=== PATIENT | female | born 1960 | race Caucasian/White ===

== ENCOUNTER 2017-12-28 08:41 | Day surgery (SDC) | payer OTHER ==
[2017-12-28 12:50] LABS: ADD MAN DIFF? NO
[2017-12-28 12:53] LABS: WHITE BLOOD COUNT 7.1 10^3/ul (4.8-10.8)
[2017-12-28 12:53] LABS: BASOPHIL # 0.1 10^3/ul (0.0-0.1); BASOPHILS % 0.8 % (0.0-2.0); EOSINOPHILS # 0.2 10^3/ul (0.0-0.5); EOSINOPHILS % 2.3 % (0.0-7.0); HEMATOCRIT 40.1 % (37.0-47.0); HEMOGLOBIN 14.3 g/dl (12.0-16.0); LYMPHOCYTES # 2.7 10^3/ul (0.8-2.9); LYMPHOCYTES % 38.2 % (15.0-51.0); MEAN CORPUSCULAR HEMOGLOBIN 29.3 pg (29.0-33.0); MEAN CORPUSCULAR HGB CONC 35.7 g/dl (32.0-37.0); MEAN CORPUSCULAR VOLUME 82.2 fl (82.0-101.0); MEAN PLATELET VOLUME 12.3 fl (7.4-10.4); MONOCYTE # 0.5 10^3/ul (0.3-0.9); MONOCYTES % 6.5 % (0.0-11.0); NEUTROPHIL # 3.7 10^3/ul (1.6-7.5); NEUTROPHILS % 52.1 % (39.0-77.0); PLATELET COUNT 242 10^3/UL (140-415); RED BLOOD COUNT 4.88 10^6/ul (4.20-5.40); RED CELL DISTRIBUTION WIDTH 11.7 % (11.5-14.5)
[2017-12-28 13:12] LABS: INR 0.95; PROTIME 12.8 Sec (11.9-14.9)
[2017-12-28 13:15] LABS: ALANINE AMINOTRANSFERASE 30 IU/L (13-69); ALBUMIN 4.6 g/dl (3.3-4.9); ALBUMIN/GLOBULIN RATIO 1.31; ALKALINE PHOSPHATASE 91 IU/L (42-121); ANION GAP 17 (8-16); ASPARTATE AMINO TRANSFERASE 24 IU/L (15-46); BILIRUBIN,INDIRECT 0.3 mg/dl (0-1.1); BILIRUBIN,TOTAL 0.3 mg/dl (0.2-1.3); CARBON DIOXIDE 29 mmol/L (21-31); CHLORIDE 103 mmol/L (97-110); GLUCOSE 185 mg/dl (70-220); TOTAL PROTEIN 8.1 g/dl (6.1-8.1)
[2017-12-28 13:24] LABS: BLOOD UREA NITROGEN 18 mg/dl (7-20); CALCIUM 9.3 mg/dl (8.4-10.2)
[2017-12-28 13:25] LABS: SODIUM 145 mmol/L (135-144)
[2017-12-28] MEDS ORDERED: SOD CHLORIDE 0.9% 1,000 ML IV (13:30)
[2017-12-28] MEDS ORDERED: FENTAnyl 50 MCG/ML VIAL (13:57)
[2017-12-28] MEDS ORDERED: MIDAZOLAM 1 MG/ML 2 ML INJ (13:57)
[2017-12-28] MEDS ORDERED: PROPOFOL 20 ML (14:59)
[2017-12-28] MEDS ORDERED: LIDOCAINE 2% (SDV) 5 ML INJ (14:59)
[2017-12-28] MEDS ORDERED: CEFAZOLIN 1 GM INJ (14:59)
[2017-12-28] MEDS ORDERED: HYDROCODONE/APAP (7.5/325) TAB PO (15:00)
[2017-12-28] MEDS ORDERED: ONDANSETRON 4 MG INJ (15:00)
[2017-12-28] MEDS ORDERED: ONDANSETRON 4 MG INJ IV (15:30)
[2017-12-28] MEDS ORDERED: DIPHENHYDRAMINE 50 MG INJ IV (15:30)
[2017-12-28] MEDS ORDERED: METOCLOPRAMIDE 10 MG INJ IV (15:30)
[2017-12-28] MEDS ORDERED: LABETALOL HCL 20MG INJ IV (15:30)
[2017-12-28] MEDS ORDERED: FENTAnyl 50 MCG/ML VIAL IV (15:30)
[2017-12-28] MEDS ORDERED: HYDROmorphONE (0.2 MG/ML) 10ML SYG IV ×2 (15:30)
[2017-12-28] MEDS ORDERED: MEPERIDINE 25 MG INJ IV (15:30)
== END 2017-12-28 17:00 | disposition home or self-care (01) ==
LOC: SDS 08:41
DX: D05.12 Intraductal carcinoma in situ of left breast (principal); I10 Essential (primary) hypertension; E78.5 Hyperlipidemia, unspecified
CPT/HCPCS: 19120; 80053; 82962; 84703; 85025; 85610; 85730; 88307; 88341; 88342; 93005

== ENCOUNTER 2018-04-19 07:49 | Day surgery (SDC) | payer OTHER ==
[~2018-04-19 07:49] MED LIST: LIDOCAINE 100 MG SYRINGE
[2018-04-19] MEDS ORDERED: SOD CHLORIDE 0.9% 1,000 ML IV (08:00)
[2018-04-19] MEDS ORDERED: CEFAZOLIN 1 GM/50 ML (PMX) 50 ML IVPB (08:00)
[2018-04-19 09:01] LABS: ADD MAN DIFF? NO
[2018-04-19 09:04] LABS: BASOPHILS % 0.6 % (0.0-2.0); EOSINOPHILS # 0.2 10^3/ul (0.0-0.5); EOSINOPHILS % 2.5 % (0.0-7.0); HEMATOCRIT 39.6 % (37.0-47.0); HEMOGLOBIN 13.8 g/dl (12.0-16.0); LYMPHOCYTES # 1.9 10^3/ul (0.8-2.9); MEAN CORPUSCULAR HEMOGLOBIN 29.1 pg (29.0-33.0); MEAN CORPUSCULAR HGB CONC 34.8 g/dl (32.0-37.0); MEAN CORPUSCULAR VOLUME 83.5 fl (82.0-101.0); MEAN PLATELET VOLUME 12.5 fl (7.4-10.4); MONOCYTE # 0.4 10^3/ul (0.3-0.9); MONOCYTES % 6.2 % (0.0-11.0); NEUTROPHIL # 3.9 10^3/ul (1.6-7.5); NEUTROPHILS % 60.4 % (39.0-77.0); PLATELET COUNT 219 10^3/UL (140-415); RED BLOOD COUNT 4.74 10^6/ul (4.20-5.40); RED CELL DISTRIBUTION WIDTH 11.3 % (11.5-14.5)
[2018-04-19 09:04] LABS: WHITE BLOOD COUNT 6.4 10^3/ul (4.8-10.8)
[2018-04-19 09:26] LABS: ALANINE AMINOTRANSFERASE 35 IU/L (13-69); ALBUMIN/GLOBULIN RATIO 1.17; ALKALINE PHOSPHATASE 103 IU/L (42-121); ANION GAP 14 (8-16); ASPARTATE AMINO TRANSFERASE 24 IU/L (15-46); BILIRUBIN,INDIRECT 0.4 mg/dl (0-1.1); BILIRUBIN,TOTAL 0.4 mg/dl (0.2-1.3); BLOOD UREA NITROGEN 19 mg/dl (7-20); CALCIUM 8.7 mg/dl (8.4-10.2); CARBON DIOXIDE 24 mmol/L (21-31); CHLORIDE 105 mmol/L (97-110); CREATININE 0.57 mg/dl (0.44-1.00); GLUCOSE 278 mg/dl (70-220); POTASSIUM 4.4 mmol/L (3.5-5.1); SODIUM 139 mmol/L (135-144); TOTAL PROTEIN 7.4 g/dl (6.1-8.1)
[2018-04-19] MEDS: INSULIN REGULAR, HUMAN 100 UNIT/1 ML 3ML VIAL SC (09:31)
[2018-04-19 09:39] LABS: INR 0.92; PROTIME 12.4 Sec (11.9-14.9)
[2018-04-19 09:40] LABS: PARTIAL THROMBOPLASTIN TIME 25.7 Sec (25.0-35.0)
[2018-04-19] MEDS ORDERED: GLYCOPYRROLATE 0.4 MG INJ (11:24)
[2018-04-19] MEDS ORDERED: ROCURONIUM 50 MG INJ (11:24)
[2018-04-19] MEDS ORDERED: FENTAnyl 50 MCG/ML VIAL (11:24)
[2018-04-19] MEDS ORDERED: NEOSTIGMINE 3 MG/3 ML SYRINGE (11:24)
[2018-04-19] MEDS ORDERED: DEXAMETHASONE 4 MG/ML 1 ML INJ (11:24)
[2018-04-19] MEDS ORDERED: ONDANSETRON 4 MG INJ (11:24)
[2018-04-19] MEDS ORDERED: MIDAZOLAM 1 MG/ML 2 ML INJ (11:24)
[2018-04-19] MEDS ORDERED: PROPOFOL 20 ML (11:24)
[2018-04-19] MEDS ORDERED: NALOXONE (0.4 MG/ML) INJ IV (11:30)
[2018-04-19] MEDS ORDERED: SUCCINYLCHOLINE CHLORIDE 100 MG/5 ML SYG IV (12:29)
[2018-04-19] MEDS: HYDROmorphONE 1 MG/5 ML IV SYRINGE IV ×2 (13:27→13:33)
[2018-04-19] MEDS ORDERED: FENTAnyl 50 MCG/ML VIAL IV ×3 (13:30)
[2018-04-19] MEDS ORDERED: HYDROmorphONE 1 MG/5 ML IV SYRINGE IV ×2 (13:30)
[2018-04-19] MEDS ORDERED: ONDANSETRON 4 MG INJ IV (13:30)
[2018-04-19] MEDS: HYDROCODONE/APAP (7.5/325) TAB PO (14:38)
== END 2018-04-19 16:00 | disposition home or self-care (01) ==
LOC: SDS 07:49
DX: N60.32 Fibrosclerosis of left breast (principal); N60.22 Fibroadenosis of left breast; Z85.3 Personal history of malignant neoplasm of breast; E11.9 Type 2 diabetes mellitus without complications
CPT/HCPCS: 19301; 71045; 80053; 82962; 85025; 85610; 85730; 88307; 93005